=== PATIENT | female | born 1960 | race Caucasian/White ===

== ENCOUNTER → 2022-07-12 14:29 | Outpatient (CLI) | payer BC, SELFPAY ==
[2022-07-12 18:56] LABS: Alanine Aminotransferase 25 U/L (12-78); Albumin Level 4.5 g/dl (3.5-5.0); Albumin/Globulin Ratio 1.4 (1.1-1.8); Alkaline Phosphatase 116 U/L (38-126); Anion Gap 16.6 mEq/L (5-15); Aspartate Amino Transferase 26 U/L (14-36); Bilirubin,Total 0.2 mg/dl (0.2-1.3); Blood Urea Nitrogen 11 mg/dl (7-17); Calcium 10.1 mg/dl (8.4-10.2); Carbon Dioxide 25 mmol/L (22.0-30.0); Chloride 107 mmol/L (98-107); Cholesterol 183 mg/dl (140-200); Estimated Glomerular Filt Rate 56 ml/min (>60); GFR (African American) 68 ML/MIN (>60); Globulin 3.2 g/dL (1.3-3.2); Glucose 98 mg/dl (74-100); HDL Cholesterol 23 mg/dl (40-60); Potassium 4.6 mmoL/L (3.5-5.1); Sodium 144 mmol/L (136-145); Total Protein,Serum 7.7 g/dl (6.3-8.2)
[2022-07-12 19:03] LABS: Basophils # 0.1 K/mm3 (0-0.2); Basophils % 1.2 % (0.1-2.0); Eosinophils # 0.1 K/mm3 (0.0-0.4); Eosinophils % 0.6 % (0.1-12.0); Hematocrit 44.7 % (37.0-47.0); Hemoglobin 14.5 g/dL (12.2-16.2); Mean Corpuscular HGB Conc 32.5 g/dL (31.8-35.4); Mean Corpuscular Hemoglobin 29.8 pg (27.0-31.2); Mean Corpuscular Volume 91.8 fl (81-99); Mean Platelet Volume 8.9 fl (7.4-10.4); Monocytes # 0.3 K/mm3 (0.1-1.0); Monocytes % 3.5 % (1.7-9.3); Neutrophils # 5.8 K/mm3 (1.8-7.8); Neutrophils % 62.7 % (37.0-80.0); Platelet Count 323 K/mm3 (142-424); Red Blood Count 4.87 M/mm3 (4.20-5.40); Red Cell Distribution Width 13.5 % (11.5-17.5); White Blood Count 9.3 K/mm3 (4.8-10.8)
[2022-07-12 19:05] LABS: Triglycerides 467 mg/dl (30-150)
[2022-07-12 19:11] LABS: 25-OH Vitamin D, Total 40.9 ng/mL (30-100)
[2022-07-12 19:12] LABS: T4 (Thyroxine) 8.2 ug/dl (5.53-11.0)
[2022-07-12 19:26] LABS: Thyroid Stimulating Hormone 2.39 uIU/mL (0.465-4.68)
[2022-07-12 19:45] LABS: Vitamin B12 585 pg/mL (239-931)
[2022-07-14 15:32] LABS: Direct LDL Cholesterol 65 mg/dL (100-129)
== END ==
PROVIDERS: PCP Family Medicine; Visit Provider Family Medicine
DX: E78.5 Hyperlipidemia, unspecified (principal); I10 Essential (primary) hypertension
CPT/HCPCS: 80053; 80061; 82306; 82607; 84436; 84443; 85025

== ENCOUNTER → 2023-05-29 23:35 | Outpatient (CLI) | payer MEDICARE, SELFPAY ==
[2023-05-29 19:26] LABS: Basophils % 0.5 % (0.1-2.0); Eosinophils # 0.1 K/mm3 (0.0-0.4); Eosinophils % 0.7 % (0.1-12.0); Hematocrit 43.2 % (37.0-47.0); Hemoglobin 14.1 g/dL (12.2-16.2); Lymphocytes # 2.3 K/mm3 (0.7-4.5); Lymphocytes % 30.4 % (10-50); Mean Corpuscular HGB Conc 32.6 g/dL (31.8-35.4); Mean Corpuscular Hemoglobin 29.2 pg (27.0-31.2); Mean Corpuscular Volume 89.6 fl (81-99); Mean Platelet Volume 9.4 fl (7.4-10.4); Monocytes # 0.3 K/mm3 (0.1-1.0); Monocytes % 4.4 % (1.7-9.3); Neutrophils # 4.9 K/mm3 (1.8-7.8); Neutrophils % 64.1 % (37.0-80.0); Platelet Count 253 K/mm3 (142-424); Red Blood Count 4.82 M/mm3 (4.20-5.40); Red Cell Distribution Width 13.3 % (11.5-17.5); White Blood Count 7.7 K/mm3 (4.8-10.8)
[2023-05-29 19:35] LABS: Alanine Aminotransferase 28 U/L (12-78); Albumin Level 4.8 g/dl (3.5-5.0); Albumin/Globulin Ratio 1.5 (1.1-1.8); Alkaline Phosphatase 99 U/L (38-126); Anion Gap 13.9 mEq/L (5-15); Aspartate Amino Transferase 29 U/L (14-36); Bilirubin,Total 0.8 mg/dl (0.2-1.3); Blood Urea Nitrogen 15 mg/dl (7-17); Calcium 9.9 mg/dl (8.4-10.2); Carbon Dioxide 28 mmol/L (22.0-30.0); Chloride 103 mmol/L (98-107); Chol/HDL Ratio 7.8 (1-3.5); Cholesterol 203 mg/dl (140-200); Estimated Glomerular Filt Rate 56 ml/min (>60); GFR (African American) 67 ML/MIN (>60); Globulin 3.2 g/dL (1.3-3.2); Glucose 92 mg/dl (74-100); HDL Cholesterol 26 mg/dl (40-60); Potassium 4.9 mmoL/L (3.5-5.1); Sodium 140 mmol/L (136-145)
[2023-05-29 19:46] LABS: Direct LDL Cholesterol 57.02 mg/dL (100-129)
[2023-05-29 20:46] LABS: Triglycerides 462 mg/dl (30-150)
== END ==
PROVIDERS: PCP Family Medicine; Visit Provider Family Medicine
DX: Z86.19 Personal history of other infectious and parasitic diseases (principal); Z86.39 Personal history of other endocrine, nutritional and metabolic disease; Z79.899 Other long term (current) drug therapy
CPT/HCPCS: 80053; 80061; 85025

== ENCOUNTER 2023-12-18 20:43 | Outpatient (CLI) | payer MEDICARE, SELFPAY ==
[2023-12-18 18:28] LABS: Basophils # 0.1 K/mm3 (0-0.2); Basophils % 0.8 % (0.1-2.0); Eosinophils # 0.1 K/mm3 (0.0-0.4); Eosinophils % 0.9 % (0.1-12.0); Hematocrit 47.3 % (37.0-47.0); Hemoglobin 15.6 g/dL (12.2-16.2); Lymphocytes # 2.3 K/mm3 (0.7-4.5); Lymphocytes % 25.8 % (10-50); Mean Corpuscular Hemoglobin 29.9 pg (27.0-31.2); Mean Corpuscular Volume 90.5 fl (81-99); Mean Platelet Volume 8.7 fl (7.4-10.4); Monocytes # 0.3 K/mm3 (0.1-1.0); Monocytes % 2.9 % (1.7-9.3); Neutrophils # 6.2 K/mm3 (1.8-7.8); Neutrophils % 69.6 % (37.0-80.0); Platelet Count 230 K/mm3 (142-424); Red Blood Count 5.22 M/mm3 (4.20-5.40); White Blood Count 8.9 K/mm3 (4.8-10.8)
[2023-12-18 18:46] LABS: Alanine Aminotransferase 15 U/L (12-78); Albumin Level 4.8 g/dl (3.5-5.0); Albumin/Globulin Ratio 1.5 (1.1-1.8); Alkaline Phosphatase 68 U/L (38-126); Anion Gap 13.4 mEq/L (5-15); Aspartate Amino Transferase 18 U/L (14-36); Bilirubin,Total 0.7 mg/dl (0.2-1.3); Blood Urea Nitrogen 12 mg/dl (7-17); Calcium 10.2 mg/dl (8.4-10.2); Carbon Dioxide 28 mmol/L (22.0-30.0); Chloride 102 mmol/L (98-107); Estimated Glomerular Filt Rate 63 ml/min (>60); GFR (African American) 76 ML/MIN (>60); Globulin 3.1 g/dL (1.3-3.2); Glucose 95 mg/dl (74-100); Potassium 4.4 mmoL/L (3.5-5.1); Sodium 139 mmol/L (136-145); Total Protein,Serum 7.9 g/dl (6.3-8.2)
[2023-12-18 19:15] LABS: Thyroid Stimulating Hormone 1.61 uIU/mL (0.465-4.68)
== END 2023-12-18 23:59 ==
LOC: LAB.DROPOF 20:44
PROVIDERS: PCP Family Medicine; Visit Provider Family Medicine
DX: J30.9 Allergic rhinitis, unspecified (principal); E07.9 Disorder of thyroid, unspecified; R30.0 Dysuria; B96.29 Other Escherichia coli [E. coli] as the cause of diseases classified elsewhere
CPT/HCPCS: 80053; 84443; 85025; 87086

== ENCOUNTER 2025-06-18 15:00 | Outpatient (CLI) | payer MEDICARE, SELFPAY ==
[2025-06-18 19:36] LABS: Alanine Aminotransferase 48 U/L (12-78); Albumin Level 4.1 g/dl (3.5-5.0); Albumin/Globulin Ratio 1.7 (1.1-1.8); Alkaline Phosphatase 96 U/L (38-126); Anion Gap 8.3 mEq/L (5-15); Aspartate Amino Transferase 44 U/L (14-36); Bilirubin,Total 0.4 mg/dl (0.2-1.3); Blood Urea Nitrogen 10 mg/dl (7-17); Calcium 9.5 mg/dl (8.4-10.2); Carbon Dioxide 25 mmol/L (22.0-30.0); Chloride 110 mmol/L (98-107); Cholesterol 178 mg/dl (140-200); Creatinine,Serum 0.70 mg/dl (0.52-1.04); Estimated Glomerular Filt Rate 83 ml/min (>60); GFR (African American) 101 ML/MIN (>60); Globulin 2.4 g/dL (1.3-3.2); Glucose 95 mg/dl (74-100); HDL Cholesterol 28 mg/dl (40-60); Potassium 3.3 mmoL/L (3.5-5.1); Sodium 140 mmol/L (136-145); Total Protein,Serum 6.5 g/dl (6.3-8.2); Triglycerides 220 mg/dl (30-150)
[2025-06-18 20:25] LABS: Hepatitis C Ab Qual. W/ RFX REACTIVE (Negative)
--- OUTSIDE RECORDS SUMMARY | 2025-06-19 10:40 | XMS_ITS | Encounter Summary ---
Author Organization [facility] [place] [address] Care Team Providers Care Newsagent Name Role Phone Padmini Mendoza MD Primary Care Provi gerber Unavailable Eun Elder LABOR CONCILIATOR Unavailable Unavail able Padmini Mendoza MD Primary Care Provi gerber Unavailable Reason for Visit * Reason Onset Date Comments Medication Refill 02/20/2018 Encounter Details Date Type Department Care Team (Late st Contact Info) Description 02/20/2018 Refill [facility] [address] [place] [address] Padmini Mendoza MD Medication Refill Social History Tobacco Use Types Packs/Day Years Used Date Smoking Tobacco: Never Cigarettes Smokeless Tobacco: Never Alcohol Use Standard Drinks/Week Comments No 0 (1 standard drink = 0.6 oz pur e alcohol) Sexually Active Control Partners Comments Never Comments No Sex and Gender Information Value Date Recorded Sex Assigned at Not on file Legal Sex Female 12:01 PM EDT Gender Identity Not on file Sexual Orientation Not on file documented as of this encounter Functional Status * Is the person deaf or does he/she have serious difficulty hearing? Answer Date of Assessment Author No 12/15/2017 3:07 PM Leslie Cheng RMA * Is the person blind or does he/she have serious difficulty seeing even when wearing glasses? Answer Date of Assessment Author No 12/15/2017 3:07 PM Leslie Cheng RMA * Does this person have serious difficulty walking or climbing stairs? Answer Date of Assessment Author No 12/15/2017 3:07 PM Leslie Cheng YarelyDONYA * Does this person have difficulty dressing or bathing? Answer Date of Assessment Author No 12/15/2017 3:07 PM Leslie Cheng RMA * Because of a physical, mental or emotional condition, does this person have difficulty doing errands alone such as visiting a doctor's office or shopping? Answer Date of Assessment Author No 12/15/2017 3:07 PM Leslie Cheng YarelyDONYA documented as of this encounter Mental Status * Because of a physical, mental or emotional condition, does this person have serious difficulty concentrating, remembering or making decisions? Answer Entry Date Author No 12/15/2017 3:07 PM VICKY fall Leslie Yarely DONYA documented in this encounter Plan of Treatment Not on file documented as of this encounter Goals Goal Patient Goal Type Associated Problems Recent Progress Patient-Stated? Author Maintain a healthy diet, exercise regularly and maintain an ideal body weight General No Padmini Mendoza MD documented as of this encounter Visit Diagnoses Diagnosis BERTO (generalized anxiety disorder) Generalized anxiety disorder documented in this encounter Additional Health Concerns Assessment Noted Time A fall risk assessment has been complete d for the patient 11/16/2016 8:46 AM EST documented as of this encounter Care Teams Newsagent Relationship Specialty Start Date End Date Padmini Mendoza MD PCP - General Family Medicine 11/29/13 03/30/20 Padmini Mendoza MD PCP - General Family Medicine 03/31/20 04/30/20 Eun Elder LCSW Binding Dyer 01/28/20 documented as of this encounter
--- OUTSIDE RECORDS SUMMARY | 2025-06-19 10:40 | XMS_ITS | Encounter Summary ---
Author Organization [place] [address] Care Team Providers Care De Icer Element Winder Name Role Phone Padmini Mendoza MD Primary Care Provi gerber Unavailable Eun Elder CYLINDER BLOCK MECHANIC Unavailable Unavail able Padmini Mendoza MD Primary Care Provi gerber Unavailable Reason for Visit * Reason Onset Date Comments Medication Refill 06/27/2017 Encounter Details Date Type Department Care Team (Late st Contact Info) Description 06/27/2017 Refill [facility] [address] [place] [address] Padmini Mendoza MD Medication Refill Social [...] on file documented as of this encounter Plan of Treatment Not on [...] for the patient 11/16/2016 8:46 AM EST PHQ-2 Depression Total Score: 2 03/28/20 16 1:00 PM EDT documented as of this encounter Care Teams De Icer Element Winder Relationship Specialty Start Date End Date Padmini Mendoza MD PCP - General Family Medicine 11/29/13 03/30/20 Padmini Mendoza MD PCP - General Family Medicine 03/31/20 04/30/20 Eun Elder, [facility] Marine Structural Designer 01/28/20 documented as of this encounter
--- OUTSIDE RECORDS SUMMARY | 2025-06-19 10:40 | XMS_ITS | Encounter Summary ---
Author Organization [place] [address] Care Team Providers Care Over The Road Driver Name Role Phone Padmini Mendoza MD Primary Care Provi gerber Unavailable Eun Elder BLUEPRINT MAKER Unavailable Unavail able Padmini Mendoza MD Primary Care Provi gerber Unavailable Reason for Visit * Reason Onset Date Comments Medication Refill 11/04/2016 Encounter Details Date Type Department Care Team (Late st Contact Info) Description 11/04/2016 Refill [facility] [address] [place] [address] Padmini Mendoza MD Medication Refill Social [...] on file documented as of this encounter Visit Diagnoses Diagnosis BERTO (generalized anxiety disorder) Generalized anxiety disorder documented in this encounter Additional Health Concerns Assessment Noted Time PHQ-2 Depression Total Score: 2 03/28/20 16 1:00 PM EDT documented as of this encounter Care Teams Over The Road Driver Relationship Specialty Start Date End Date Padmini Mendoza MD PCP - General Family Medicine 11/29/13 03/30/20 Padmini Mendoza MD PCP - General Family Medicine 03/31/20 04/30/20 Eun Elder, BLUEPRINT MAKER Kitchenwhere Maker 01/28/20 documented as of this encounter
--- OUTSIDE RECORDS SUMMARY | 2025-06-19 10:40 | XMS_ITS | Encounter Summary ---
Author Organization [place] [address] Care Team Providers Care Supervisor Receiving And Processing Name Role Phone Padmini Mendoza MD Primary Care Provi gerber Unavailable Eun Elder BUSINESS SERVICES ASSOCIATE Unavailable Unavail able Padmini Mendoza MD Primary Care Provi gerber Unavailable Reason for Visit * Reason Onset Date Comments Medication Refill 07/16/2018 Encounter Details Date Type Department Care Team (Late st Contact Info) Description 07/16/2018 Refill [facility] [address] [place] [address] Padmini Mendoza MD Medication Refill Social [...] documented as of this encounter Care Teams Supervisor Receiving And Processing Relationship Specialty Start Date End Date Padmini Mendoza MD PCP - General Family Medicine 11/29/13 03/30/20 Padmini Mendoza MD PCP - General Family Medicine 03/31/20 04/30/20 Eun Elder LCSW Family Medicine Chair 01/28/20 documented as of this encounter
--- OUTSIDE RECORDS SUMMARY | 2025-06-19 10:40 | XMS_ITS | Encounter Summary ---
Author Organization [place] [address] Care Team Providers Care Curb Setter Helper Name Role Phone Padmini Mendoza MD Primary Care Provi gerber Unavailable Eun Elder HOME CARE PROVIDER Unavailable Unavail able Padmini Mendoza MD Primary Care Provi gerber Unavailable Reason for Visit * Reason Onset Date Comments Medication Refill 04/18/2018 Encounter Details Date Type Department Care Team (Late st Contact Info) Description 04/18/2018 Refill [facility] [address] [place] [address] Padmini Mendoza MD Medication Refill Social [...] documented as of this encounter Care Teams Curb Setter Helper Relationship Specialty Start Date End Date Padmini Mendoza MD PCP - General Family Medicine 11/29/13 03/30/20 Padmini Mendoza MD PCP - General Family Medicine 03/31/20 04/30/20 Eun Elder LCSW Hand Candle Dipper 01/28/20 documented as of this encounter
--- OUTSIDE RECORDS SUMMARY | 2025-06-19 10:40 | XMS_ITS | Encounter Summary ---
Author Organization [place] [address] Care Team Providers Care Crystallography Teacher Name Role Phone Padmini Mendoza MD Primary Care Provi gerber Unavailable Eun Elder PERSONAL BANKING ASSISTANT Unavailable Unavail able Padmini Mendoza MD Primary Care Provi gerber Unavailable Reason for Visit * Reason Onset Date Comments Medication Refill 09/13/2018 Encounter Details Date Type Department Care Team (Late st Contact Info) Description 09/13/2018 Refill [facility] [address] [place] [address] Padmini Mendoza MD Medication Refill Social [...] as of this encounter Visit Diagnoses Diagnosis Other hyperlipidemia BERTO (generalized anxiety disorder) Generalized anxiety disorder documented in this encounter Additional Health Concerns Assessment Noted Time A fall risk assessment has been complete d for the patient 11/16/2016 8:46 AM EST documented as of this encounter Care Teams Crystallography Teacher Relationship Specialty Start Date End Date Padmini Mendoza MD PCP - General Family Medicine 11/29/13 03/30/20 Padmini Mendoza MD PCP - General Family Medicine 03/31/20 04/30/20 Eun Elder LCSW Header Up 01/28/20 documented as of this encounter
--- OUTSIDE RECORDS SUMMARY | 2025-06-19 10:40 | XMS_ITS | Encounter Summary ---
Author Organization [facility] Address [address] [place] [address] Care Team Providers Care Swing Frame Grinder Operator Name Role Phone Gio Edgar MD Primary Care Provider Padmini Macedo Primary Care Provider Reason for Visit * Reason Comments Medications Refill Encounter Details Date Type Department Care Team (Late st Contact Info) Description 05/21/2012 Refill [facility] [address] [place] [address] Gio Edgar MD [place], [place] [id number] Medications Refill Social History Tobacco Use Types Packs/Day Years Used Date Smoking Tobacco: Never Assessed Comments Unknown Sex and Gender Information Value Date Recorded Sex Assigned at Not on file Legal Sex Female 2:49 PM EST Gender Identity Not on file Sexual Orientation Not on file documented as of this encounter Plan of Treatment Not on file documented as of this encounter Visit Diagnoses Not on filedocumented in this encounter Care Teams Swing Frame Grinder Operator Relationship Specialty Start Date End Date Gio Edgar MD PCP - General Family Medicine 08/29/12 09/12/[address] [place] [address] [place] [address] PCP - General Family Medicine 09/13/15 documented as of this encounter
--- OUTSIDE RECORDS SUMMARY | 2025-06-19 10:40 | XMS_ITS | Encounter Summary ---
Author Organization [place] [address] Care Team Providers Care Fleet Administrator Name Role Phone Padmini Mendoza MD Primary Care Provi gerber Unavailable Eun Elder JAVA J2EE SOFTWARE ENGINEER Unavailable Unavail able Padmini Mendoza MD Primary Care Provi gerber Unavailable Reason for Visit * Reason Onset Date Comments Medication Refill 01/04/2017 Encounter Details Date Type Department Care Team (Late st Contact Info) Description 01/04/2017 Refill [facility] [address] [place] [phone] Padmini Mendoza MD Medication Refill Social [...] documented as of this encounter Care Teams Fleet Administrator Relationship Specialty Start Date End Date Padmini Mendoza MD PCP - General Family Medicine 11/29/13 03/30/20 Padmini Mendoza MD PCP - General Family Medicine 03/31/20 04/30/20 Eun Elder, JAVA J2EE SOFTWARE ENGINEER Attendance Officer 01/28/20 documented as of this encounter
--- OUTSIDE RECORDS SUMMARY | 2025-06-19 10:40 | XMS_ITS | Clinical Summary ---
Author Organization [facility] Address [address] [place] [address] Care Team Providers Care Inside Trucker Name Role Phone Padmini Macedo Primary Care Provider Allergies Active Allergy Reactions Criticality Noted Date Comments Trazodone 07/17/2012 Sertraline Rash Medium 09/07/2012 Medications busPIRone (BUSPAR) 15 mg PO tablet TAKE 1 TABLET TWICE A DAY 180 Tab 0 05/21/2012 Active varenicline (CHANTIX KILO) 0.5 (11)-1 (42) mg PO DsPk Take by mouth. Take 0.5 mg daily days 1-3, then 0.5 mg twice a day on days 4-7; then 1 mg twice a day. 1 Package 0 07/04/2012 Active [place]-3 Fatty Acids-Vitamin E (FISH OIL) 1,000 mg PO Cap Take 4 Caps by mouth daily. Active Cholecalciferol , Vitamin D3, (VITAMIN D-3) 2,000 unit PO Tab Take 1 Tab by mouth daily. Active Multivitamin (MULTIPLE VITAMINS) PO Tab Take 1 Tab by mouth daily. Active meclizine (ANTIVERT) 25 mg PO tablet Take 1 Tab by mouth 3 times daily as needed. Active dicyclomine (BENTYL) 20 mg PO tablet Take 1 Tab by mouth 4 times daily as needed. Active clonazepam (KLONOPIN) 2 mg PO tablet Take 1 Tab by mouth 2 times daily. 60 Tab 0 08/20/2012 Active FOLIC ACID PO Take by mouth daily. Active ASCORBATE CALCIUM (VITAMIN C PO) Take by mouth daily. Active CYANOCOBALAMIN, VITAMIN B-12, PO Take by mouth daily. Active aspirin 325 mg PO tablet Take 325 mg by mouth daily. Active cetirizine (ZYRTEC) 10 mg PO Tab Take 10 mg by mouth daily. Active promethazine-co deine (PHENERGAN WITH CODEINE) 6.25-10 mg/5 mL PO syrup Take 5-10 mL by mouth every 4 hours as needed for Cough. 150 mL 1 11/07/2012 Active diazepam (VALIUM) 10 mg PO tabletIndicatio ns:HTN (hypertension), HLD (hyperlipidemia ),Menopause,Anx iety Take 1 Tab by mouth every 12 hours as needed for Anxiety. 60 Tab 0 01/16/2013 Active varenicline (CHANTIX CONTINUING MONTH ) 1 mg PO Tab As directed 1 Package 2 01/24/2013 Active Active Problems No known active problems Social History Tobacco Use Types Packs/Day Years Used Date Smoking Tobacco: Every Day Cigarettes Tobacco Cessation:Ready to Q uit: Yes; Counseling Given: Yes Alcohol Use Standard Drinks/Week Comments Yes 0 (1 standard drink = 0.6 oz pur e alcohol) very rarely Comments No Sex and Gender Information Value Date Recorded Sex Assigned at Not on file Legal Sex Female 2:49 PM EST Gender Identity Not on file Sexual Orientation Not on file Last Filed Vital Signs Vital Sign Reading Time Taken Comments Blood Pressure 118/82 09/07/2012 4:18 PM EDT Pulse 96 09/07/2012 4:18 PM EDT Temperature 36.4 C (97.5 F) 09/07/2012 4:18 PM EDT Respiratory Rate - - Oxygen Saturation 96% 09/07/2012 4:18 PM EDT Inhaled Oxygen Concentration - - Weight 80.3 kg (177 lb) 09/07/2012 4:18 PM EDT Height 170.2 cm (5' 7 ) 09/07/2012 4:18 PM EDT Body Mass Index 27.72 09/07/2012 4:18 PM EDT Plan of Treatment Health Maintenance Due Date Last Done Comments Cologuard 1958 Colonoscopy 1958 Colorectal Cancer Screening 1958 FIT 1958 Lipid Screening 1976 Tetanus Vaccination (Every 10 Years) 1976 Hepatitis C Virus (HCV) Screening 1979 Breast Cancer Screening 2008 Pneumococcal Vaccine: 50+ Years (1 of 1 - PCV) 008 Zoster-RZV(Shingrix) (1 of 2) 2008 Fall Risk Assessment 2023 Osteoporosis Screening 2023 COVID-19 Vaccine (1 - season) 2024 Advance Care Planning 11/20/2024 Depression Screening 11/20/2024 Influenza Vaccination (#1) 2025 RSV Vaccines (1 - 1-dose 75+ series) 2033 Care Teams Inside Trucker Relationship Specialty Start Date End Date Padmini Macedo [address] [place] [address] PCP - General Family Medicine 09/13/15
--- OUTSIDE RECORDS SUMMARY | 2025-06-19 10:40 | XMS_ITS | Clinical Summary ---
Author Organization [facility] Address [address] [place] [address] Phone Care Team Providers Care Switch Technician Name Role Phone Unavailable Primary Care Provider Unavailabl e Allergies Active Allergy Reactions Criticality Noted Date Comments Epinephrine Palpitations 09/11/2018 Sertraline Medications FIBER CHOICE ORAL Take by mouth. Activ e FOLIC ACID/MV,FE,OTHE R MIN (CENTRUM ORAL) Take 1 Tab by mouth daily. Active Cholecalciferol , Vitamin D3, (VITAMIN D3) 1,000 unit Cap Take 1,000 Units by mouth. Active Melatonin 3 mg Tab Take 10 mg by mouth. Active Aspirin (ASPIRIN) 81 mgIndications:P [facility] Take 1 Tab by mouth daily. 30 Tab 11 4 Active Cinnamon Bark (CINNAMON) 500 mg Oral Capsule Take by mouth. Active VALERIAN ORAL Take by mouth. A ctive omega-3 acid ethyl esters (LOVAZA) 1 gram Oral CapsuleIndicati ons:HLD (hyperlipidemia ) Take 4 Caps by mouth daily. 120 Cap 2 5 Active cyanocobalamin 1,000 mcg Oral Tablet Take 1,000 mcg by mouth daily. Active ascorbic acid, vitamin C, (VITAMIN C) 1,000 mg Oral Tablet Take 500 mg by mouth daily. Active ergocalciferol (DRISDOL) 50,000 unit Oral Capsule TAKE ONE CAPSULE BY MOUTH ONCE WEEKLY 4 Cap 2 6 Active cetirizine (ZYRTEC) 10 mg Oral Tablet Take 10 mg by mouth daily. Active triamcinolone (KENALOG) 0.025 % Top Cream APPLY TOPICALLY TWICE DAILY FOR 10 DAYS 15 g 8 Active Red Yeast Rice Extract 600 mg Oral Capsule Take 1 Cap by mouth daily. 30 Cap 5 9 Active dicyclomine (BENTYL) 10 mg Oral CapsuleIndicati ons:Irritable bowel syndrome with diarrhea Take 1 Cap by mouth 4 times daily. 360 Cap 9 Active diclofenac (VOLTAREN) 1 % Top GelIndications: Lumbar paraspinal muscle spasm,Bursitis of left shoulder Apply 2 g topically 4 times daily. For shoulder 100 g 0 Active buPROPion (WELLBUTRIN) 100 mg Oral TabletIndicatio ns:Moderate episode of recurrent major depressive disorder (HCC),Generaliz ed anxiety disorder Take 1 Tab by mouth 2 times daily. 60 Tab 2 0 Active busPIRone (BUSPAR) 5 mg Oral Tablet Take 1 Tab by mouth 3 times daily. 270 Tab 0 Active diazePAM (VALIUM) 10 mg Oral TabletIndicatio ns:BERTO (generalized anxiety disorder) Take 1 Tab by mouth every 6 hours as needed. 60 Tab 0 Active Active Problems Patient Care Coordination No te Formatting of this note migh t be different from the original. PATIENT HAS DISMISSED [facility]. DO NOT SCHEDULE FOR APPT AFTER 04/30/20 FOR ANY [facility] PROVIDER Per pt if [facility] calls regarding her medications she would like us to not speak with them about her medication. Problem Noted Date Diagnosed Date Poor sleep hygiene 06/11/2018 Vitamin D deficiency 03/28/2016 Assessment & Plan (04/15/2019 9:46 PM EDT): Continue vit d and calcium supplements. High serum vitamin B12 03/28/2016 BERTO (generalized anxiety disorder) Assessment & Plan (04/15/2019 9:44 PM EDT): Doing well with current meds. CSC signed previously. Joaquin appropriate. Recommend resuming counseling. Assessment & Plan (06/11/2018 12:38 PM EDT): Stable. Continue current meds Hypertriglyceridemia Assessment & Plan (04/15/2019 9:56 PM EDT): Fenofibrate caused worsening body aches and myalgias. Will add red yeast rice to zetia. Recommend diet changes. Major depressive disorder, recurrent episode, mi ld Elevated triglycerides with high cholesterol Migraines PTSD (post-traumatic stress disorder) Panic disorder Insomnia Situational anxiety IBS (irritable bowel syndrome) Pilonidal cyst Immunizations Immunization Administration Dates Next Due PPD Test 02/07/2011 Surgical History Surgery Date Site/Laterality Comments HYSTERECTOMY, TOTAL ABDOMINAL benign path, PILONIDAL CYST DRAINAGE Medical History Medical History Date Comments Depression Anxiety Elevated triglycerides with high cholesterol Migraines PTSD (post-traumatic stress disorder) Panic disorder Insomnia Situational anxiety IBS (irritable bowel syndrome) Pilonidal cyst Family History Medical History Relation Name Comments Heart Disease Father Diabetes Mother Relation Name Status Comments Brother Alive Father Maternal Grandfather Maternal Grandmother Mother Paternal Grandfather Paternal Grandmother Sister 1 Alive Sister 2 Alive Social History Tobacco Use Types Packs/Day Years Used Date Smoking Tobacco: Never Cigarettes Smokeless Tobacco: Never Alcohol Use Standard Drinks/Week Comments No 0 (1 standard drink = 0.6 oz pur e alcohol) Overall Financial Resource Strain (CARDIA) Answe r Date Recorded Difficulty of Paying Living Expenses Not hard at all 01/29/2020 PHQ-2 Answer Date Recorded PHQ-2 Score 0 01/28/2020 Hunger Vital Sign Answer Date Recorded Worried About Running Out of Food in the Last Ye ar Never true 01/29/2020 Ran Out of Food in the Last Year Never true 01/29/2020 PRAPARE - Transportation Answer Date Re corded Lack of Transportation (Medical) No 01/29/2020 Lack of Transportation (Non-Medical) No 01/29/2020 Sexually Active Control Partners Comments Never Comments No Sex and Gender Information Value Date Recorded Sex Assigned at Not on file Legal Sex Female 12:01 PM EDT Gender Identity Not on file Sexual Orientation Not on file Occupation Industry Job Start Date Job End Date Retired Teacher Not on file Not on file Not on file Obstetrics History Last Filed Vital Signs Vital Sign Reading Time Taken Comments Blood Pressure 138/84 01/28/2020 2:58 PM EDT Pulse 68 01/28/2020 2:58 PM EDT Temperature 36.7 C (98 F) 01/28/2020 2:58 PM EDT Respiratory Rate 16 01/28/2020 2:58 PM EDT Oxygen Saturation 96% 01/28/2020 2:58 PM EDT Inhaled Oxygen Concentration - - Weight 81.9 kg (180 lb 9.6 oz) 01/28/2020 2:58 P M EDT Height 170.2 cm (5' 7 ) 01/28/2020 2:58 PM EDT Body Mass Index 28.29 01/28/2020 2:58 PM EDT Plan of Treatment Health Maintenance Due Date Last Done Comments Annual Wellness Exam 1961 DTaP/TDaP/Td (1 - Tdap) 1977 Colonoscopy 2003 FIT 2003 Sigmoidoscopy 2003 Virtual Colonography 2003 Pneumococcal Vaccine 50+ (1 of 1 - PCV) 2008 Zoster (1 of 2) 2008 Breast Cancer Screening 11/28/2020 11/28/19 19, 07/06/2015 Cologuard 08/05/2022 08/05/2019 Colon Cancer Screening 08/05/2022 Bone Density Screening 2023 COVID-19 Vaccine (1 - 2023-2 5 season) 2024 Influenza Vaccine (#1) 2025 7 (Declined), 08/08/2016 (Declined), 01/18/2016 (Postponed) Hepatitis C Screening Completed 12/19/2016 , 11/30/2016 Hepatitis B Vaccine Aged Out No longe r eligible based on patient's age to complete this topic Meningococcal B Vaccine Aged Out No l onger eligible based on patient's age to complete this topic Goals Goal Patient Goal Type Associated Problems Recent Progress Patient-Stated? Author Maintain a healthy diet, exercise regularly and maintain an ideal body weight General No Padmini Mendoza MD Procedures Procedure Name Priority Date/Time Associated Diagnosis Comments COLOGUARD Routine 08/05/2019 9:51 AM EDT Screening for malignant neoplasm of the rectum Screening for malignant neoplasm of colon MM MOBILE MAMMO DIGITAL SCREEN W CAD AMINAH Routine 11/28/2018 12:10 PM EST Encounter for screening mammogram for malignant neoplasm of breast HCV QUANT W/RFLX TO GENOTYPE -REF LAB Routine 12/19/2016 3:44 PM EST Hepatitis C antibody positive in blood from Last 3 Months or Most Recently Relevant to Health Maintenance Results * COLOGUARD (08/05/2019 9:51 AM EDT) COLOGUARD CLINICAL REPORT Negative Not Applicable [facility] Comment: A negative result indicates a low likelihood that a colorectal cancer (CRC) or an advanced adenoma (adenomatous polyps with more advanced pre-malignant features) is present. The chance that a person with a negative Cologuard test has a colorectal cancer is less than 1 in 1500 (negative predictive value >99.9%) or has an advanced adenoma is less than 5.3% (negative predictive value 94.7%). These data are based on a prospective cross-sectional screening study of 10,000 individuals at average risk for colorectal cancer who were screened with both Cologuard and colonoscopy. (Thomas Foss al, N Engl J Med 2014;370(14):1334-9287) COLOGUARD RE-SCREENING RECOMMENDATION: Periodic routine colorectal cancer screening is an important part of preventive healthcare for asymptomatic persons at average risk for colorectal cancer. Following a negative Cologuard result, the [place] Cancer Society and U.S. Multi-Society Task Force screening guidelines recommend a Cologuard re-screening interval of 3 years. References: [employer] Cancer Society (ACS). Colorectal cancer prevention and early detection. [place], [place]: [employer] Society; [updated 2015Mar 13]. https://www.cancer.org/cancer/rtuye-cyicbw-efsrkv/drjznobxl-btcatnmaf-xyemfxw/ac s-rec ommendations.html. Accessed July 20, 2018; Gorge DK, Avila CR, Alessia AlmanzaK, Colorectal Cancer Screening: Recommendations for Physicians and Patients from the U.S. Multi-Society Task Force on Colorectal Cancer Screening, Am J Gastroenterology 2017; 112:7703-9493. Test Type: Composite algorithmic analysis of stool DNA-biomarkers with hemoglobin immunoassay. Quantitative values of individual biomarkers are not reportable and are not associated with individual biomarker result reference ranges. Precautions and Limitations: Cologuard is intended for colorectal cancer screening of adults of either sex, 50 years or older, who are at typical average-risk for colorectal cancer. A negative Cologuard test result does not guarantee the absence of colorectal cancer or advanced adenoma (pre-cancer). Patients with a negative Cologuard test result should be advised to continue participating in a colorectal cancer screening program. Cologuard may produce a positive result, even though a colonoscopy may not find colorectal cancer or precancerous polyps. The performance of Cologuard has been established in a cross sectional study (i.e., single point in time). Performance has not been evaluated in adults who have been previously tested with Cologuard or in patients less than 50 years of age. Cologuard has been approved for use by the U.S. FDA. Cologuard performance data in a 10,000 patient pivotal study using colonoscopy as the reference method can be accessed at the following location: www.Namshi.Runscope/results. Additional description of the Cologuard test process, warnings and precautions can be found at www.cologuardtest.com. Rx Only. Stool specimen (specimen) 08/05/2019 9:51 AM EDT 08/07/2019 7:56 PM EDT us Padmini Gillette MD EXACT SCIENCE - ORD ERABLES Final Result Performing Organization Address City/State/[facility] Co de Phone Number [employer], [employer] [address] [place] [address], [facility] [employer] [address] [place] [address] * MM MOBILE MAMMO DIGITAL SCREEN W CAD AMINAH (11/28/2018 12:10 PM EST) Anatomical Region Laterality Modality Breast Mammography 11/29/2018 6:55 AM EST Impressions 11/29/2018 6:55 AM EST Negative ([id number]) ~ RECOMMENDATION: Routine screening mammogram in 1 year. ~ DISCLAIMER * Any patient with a palpable abnormality, unexplained by breast imaging, should be managed on clinical basis by the attending physician. * Breast imaging has a false negative rate of 15%. * The patient was notified by mail of the results of this examination. *The patient's information was entered into a reminder system with a target due date for the next mammogram. The mammogram was reviewed by a Radiologist and CAD. Narrative 11/29/2018 6:55 AM EST Procedure:MM MOBILE MAMMO DIGITAL SCREEN W CAD AMINAH ~ Reason for exam: screening, asymptomatic. Z12.31-Encounter for screening mammogram for malignant neoplasm of [id number] ~ MM MOBILE MAMMO DIGITAL SCREEN W CAD AMINAH Bilateral CC and MLO view(s) were taken. There are scattered fibroglandular densities. Prior study comparison: Compared with prior studies the most recent being 07/06/15 Symmetric breast architecture without discrete mass or architectural distortion. No suspicious calcifications. ~ Procedure Note Angel Luis Osullivan MD - 11/29/2018 Procedure:MM MOBILE MAMMO DIGITAL SCREEN W CAD AMINAH ~ Reason for exam: screening, asymptomatic. Z12.31-Encounter for screening mammogram for malignant neoplasm of [id number]-CM ~ MM MOBILE MAMMO DIGITAL SCREEN W CAD AMINAH Bilateral CC and MLO view(s) were taken. There are scattered fibroglandular densities. Prior study comparison: Compared with prior studies the most recentbeing 07/06/15 Symmetric breast architecture without discrete mass or architectural distortion. No suspicious calcifications. ~ IMPRESSION: Negative ([id number]) ~ RECOMMENDATION: Routine screening mammogram in 1 year. ~ DISCLAIMER * Any patient with a palpable abnormality, unexplained by breast imaging, should be managed on clinical basis by the attending physician. * Breast imaging has a false negative rate of 15%. * The patient was notified by mail of the results of this examination. *The patient's information was entered into a reminder system with atarget due date for the next mammogram. The mammogram was reviewed by a Radiologist and CAD. us Padmini Gillette MD IMG MAMMOGRAPHY ORD ERABLES Final Result * HCV RNA QUANT, REAL TIME PCR, W/RFLX TO GENOTYPE -REF LAB (12/19/2016 3:44 PM EST) Hepatitis C RNA <1.2 log IU [facility] Comment: *Hepatitis C Virus by Quantitative PCR result was less than 3.6 log IU/mL (4000 IU/mL); therefore no further testing added. INTERPRETIVE INFORMATION: Hepatitis C Virus by Quantitative PCR The quantitative range of this assay is 1.2 - 8.0 log IU/mL (15- 100,000,000 IU/mL). Limit of detection (LOD): 15 IU/mL (1.2 log IU/mL) LOD values do not apply to diluted specimens. An interpretation of Not Detected does not rule out the presence of PCR inhibitors in the patient specimen or hepatitis C virus RNA concentrations below the level of detection of the test. Care should be taken when interpreting any single viral load determination. This test should not be used for blood donor screening, associated re-entry protocols, or for screening Human Cell, Tissues and Cellular Tissue-Based Products (HCT/P). HCV IU <15 IU/mL [facility] HCV RNA Interpretation Not Detected Not Detected [facility] EER HCV RNA Qnt w/Genotype Reflex See Note [employer] Comment: Access [employer] Enhanced Report using either link below: -Direct access: [email or web address] -Enter Username, Password: [email or web address]) Username: [email or web address] Password: [email or web address] Performed by [employer], [address] [place] [address] [id number] [email or web address], Maldonado Fraga MD - Lab. Director Blood specimen (specimen) 12/19/2016 3:44 PM EST 12/19/2016 9:44 PM EST us Padmini Gillette MD IMMUNOLOGY ORDERABL ES Final Result [employer] [address] [place] [address] from Last 3 Months or Most Recently Relevant to Health Maintenance Insurance [employer] [address] [place] [address], [place] [address] [employer] PPO
--- OUTSIDE RECORDS SUMMARY | 2025-06-19 10:40 | XMS_ITS | Encounter Summary ---
Author Organization [place] [address] Care Team Providers Care [employer] Name Role Phone Padmini Mendoza MD Primary Care Provi gerber Unavailable Eun Elder EXERCISE SCIENTIST Unavailable Unavail able Padmini Mendoza MD Primary Care Provi gerber Unavailable Reason for Visit * Reason Onset Date Comments Medication Refill 12/05/2016 Encounter Details Date Type Department Care Team (Late st Contact Info) Description 12/05/2016 Refill [facility] [address] [place] [address] Padmini Mendoza MD Medication Refill Social [...] documented as of this encounter Care Teams Teacher [employer] Relationship Specialty Start Date End Date Padmini Mendoza MD PCP - General Family Medicine 11/29/13 03/30/20 Padmini Mendoza MD PCP - General Family Medicine 03/31/20 04/30/20 Eun Elder, EXERCISE SCIENTIST Negotiator 01/28/20 documented as of this encounter
--- OUTSIDE RECORDS SUMMARY | 2025-06-19 10:40 | XMS_ITS | Encounter Summary ---
Author Organization [place] [address] Care Team Providers Care Bag Sorter Name Role Phone Padmini Mendoza MD Primary Care Provi gerber Unavailable Eun Elder SUPERINTENDENT CONTAINER TERMINAL Unavailable Unavail able Padmini Mendoza MD Primary Care Provi gerber Unavailable Reason for Visit * Reason Onset Date Comments Medication Refill 10/15/2018 Encounter Details Date Type Department Care Team (Late st Contact Info) Description 10/15/2018 Refill [facility] [address] [place] [address] Padmini Mendoza MD Medication Refill Social [...] documented as of this encounter Care Teams Bag Sorter Relationship Specialty Start Date End Date Padmini Mendoza MD PCP - General Family Medicine 11/29/13 03/30/20 Padmini Mendoza MD PCP - General Family Medicine 03/31/20 04/30/20 Eun Elder LCSW Web Press Operator Apprentice 01/28/20 documented as of this encounter
--- OUTSIDE RECORDS SUMMARY | 2025-06-19 10:40 | XMS_ITS | Encounter Summary ---
Author Organization [place] [address] Care Team Providers Care Ham Stripper Name Role Phone Padmini Mendoza MD Primary Care Provi gerber Unavailable Eun Elder [facility] Unavailable Unavail able Padmini Mendoza MD Primary Care Provi gerber Unavailable Reason for Visit * Reason Onset Date Comments Medication Refill 03/08/2019 Encounter Details Date Type Department Care Team (Late st Contact Info) Description 03/08/2019 Refill [facility] [place] [address] [address] [address] [place] [address] [address] [place] [address] Medication Refill Social History Tobacco Use Types [...] of Assessment Author No 12/15/2017 3:07 PM VICKY fall Leslie Yarely, RMA * Does this person have serious difficulty walking or climbing stairs? Answer Date of Assessment Author No 12/15/2017 3:07 PM Leslie Cheng Yarely STEPHANIEA * Does this person have difficulty dressing or bathing? Answer Date of Assessment Author No 12/15/2017 3:07 PM Leslie Cheng Yarely DONYA * Because of a physical, mental or emotional condition, does this person have difficulty doing errands alone such as visiting a doctor's office or shopping? Answer Date of Assessment Author No 12/15/2017 3:07 PM Leslie Cheng DONYA documented as of this encounter Mental Status [...] documented as of this encounter Care Teams Ham Stripper Relationship Specialty Start Date End Date Padmini Mendoza MD PCP - General Family Medicine 11/29/13 03/30/20 Padmini Mendoza MD PCP - General Family Medicine 03/31/20 04/30/20 Eun Elder LCSW Gold Prospector 01/28/20 documented as of this encounter
--- OUTSIDE RECORDS SUMMARY | 2025-06-19 10:40 | XMS_ITS | Encounter Summary ---
Author Organization [place] [address] Care Team Providers Care Broker In Charge Name Role Phone Padmini Mendoza MD Primary Care Provi gerber Unavailable Eun Elder DIE BARBER Unavailable Unavail able Padmini Mendoza MD Primary Care Provi gerber Unavailable Reason for Visit * Reason Onset Date Comments Medication Refill 11/13/2018 Encounter Details Date Type Department Care Team (Late st Contact Info) Description 11/13/2018 Refill [facility] [address] [place] [address] Padmini Mendoza MD Medication Refill Social [...] documented as of this encounter Care Teams Broker In Charge Relationship Specialty Start Date End Date Padmini Mendoza MD PCP - General Family Medicine 11/29/13 03/30/20 Padmini Mendoza MD PCP - General Family Medicine 03/31/20 04/30/20 Eun Elder LCSW Health Science Writer 01/28/20 documented as of this encounter
--- OUTSIDE RECORDS SUMMARY | 2025-06-19 10:40 | XMS_ITS | Encounter Summary ---
Author Organization [place] [address] Care Team Providers Care Music Coordinator Name Role Phone Padmini Mendoza MD Primary Care Provi gerber Unavailable Eun Elder SEGREGATOR Unavailable Unavail able Padmini Mendoza MD Primary Care Provi gerber Unavailable Reason for Visit * Reason Onset Date Comments Medication Refill 02/08/2019 Encounter Details Date Type Department Care Team (Late st Contact Info) Description 02/08/2019 Refill [facility] [place] [address] [address] [place] [address] [place] [address] Medication Refill Social History Tobacco Use [...] Author No 12/15/2017 3:07 PM Leslie Cheng aYrely DONYA * Because of a physical, mental [...] documented as of this encounter Care Teams Music Coordinator Relationship Specialty Start Date End Date Padmini Mendoza MD PCP - General Family Medicine 11/29/13 03/30/20 Padmini Mendoza MD PCP - General Family Medicine 03/31/20 04/30/20 Eun Elder LCSW Mainframe Programmer 01/28/20 documented as of this encounter
--- OUTSIDE RECORDS SUMMARY | 2025-06-19 10:40 | XMS_ITS | Clinical Summary ---
Author Organization [facility] Address [address], [address] [place] [address] Care Team Providers Care Director Of Planning Name Role Phone Unavailable Primary Care Provider Unavailabl e Social History Tobacco Use Types Packs/Day Years Used Date Smoking Tobacco: Never Assessed Comments Unknown Sex and Gender Information Value Date Recorded Sex Assigned at Not on file Legal Sex Female 3:14 PM EDT Gender Identity Not on file Sexual Orientation Not on file Plan of Treatment Not on file
[2025-06-20 05:11] LABS: Hepatitis B Surface Antigen Negative (Negative)
== END 2025-06-18 23:59 | disposition home or self-care (01) ==
LOC: LAB.DROPOF 06-19 10:31
PROVIDERS: PCP Family Medicine; Visit Provider Family Medicine
DX: F41.0 Panic disorder [episodic paroxysmal anxiety] (principal); Z11.59 Encounter for screening for other viral diseases
CPT/HCPCS: 80053; 80061; 86803; 87340; 87389; 87522